=== PATIENT | female | born 1945 | race Caucasian/White ===

== ENCOUNTER 2019-05-05 06:32 | Inpatient (IN) | payer MEDICARE, MEDICAID ==
[~2019-05-05] VITALS: Ht 139.7 cm; Wt 97.8 kg
[2019-05-08 12:42] VITALS: BP 115/60
== END 2019-05-08 14:33 | disposition home or self-care (01) | DRG 466 ==
LOC: ORIP 06:32 → 4NOR 13:09
PROVIDERS: ADMIT Orthopaedic Surgery; ATTEND Orthopaedic Surgery
PROC: 0SRC0J9 Replacement of Right Knee Joint with Synthetic Substitute, Cemented, Open Approach (ICD-10-PCS; principal; 2019-05-05)
PROC: 0SPC0JZ Removal of Synthetic Substitute from Right Knee Joint, Open Approach (ICD-10-PCS; 2019-05-05)
DX: T84.032A Mechanical loosening of internal right knee prosthetic joint, initial encounter (principal); R53.2 Functional quadriplegia; Z68.43 Body mass index [BMI] 50.0-59.9, adult; Z96.651 Presence of right artificial knee joint; I25.10 Atherosclerotic heart disease of native coronary artery without angina pectoris; M81.0 Age-related osteoporosis without current pathological fracture; K21.9 Gastro-esophageal reflux disease without esophagitis; E66.01 Morbid (severe) obesity due to excess calories; Z88.8 Allergy status to other drugs, medicaments and biological substances; Z91.048 Other nonmedicinal substance allergy status; Z88.2 Allergy status to sulfonamides; Z82.49 Family history of ischemic heart disease and other diseases of the circulatory system; Z82.61 Family history of arthritis; Z86.718 Personal history of other venous thrombosis and embolism; Z79.01 Long term (current) use of anticoagulants; Y92.89 Other specified places as the place of occurrence of the external cause
CPT/HCPCS: 36415; 80053; 82565; 83036; 85014; 85018; 85025; 85610; 85730; 86850; 86900; 87070; 87075; 87081; 87176; 87205; 93005; C1713; G0378; J0171; J0690; J1100; J1170; J1885; J2175; J2405; J2704; J2710; J2795; J3010; J3370; J3480; C1762; C1776; J0330; J0360; J7120